=== PATIENT | female | born 2000 ===

== ENCOUNTER 2024-04-24 08:19 | Outpatient (AMB) | payer SELFPAY ==
[2024-04-24 08:57] VITALS: BP 102/70; PULSE 68; TEMP 36.8; O2SAT 99; BMI 28.7
--- NOTE | 2024-04-24 08:57 | AM.OFFWIN_ITS ---
Intake Vital Signs 04/24/24 08:57 Height 5 ft 6 in Weight 178 lb BMI 28.7 BP 102/70 Blood Pressure Location Lt brachial Position Sitting Pulse 68 Pulse Source Pulse Oximeter Temp 98.2 F Temp Source Oral Pulse Oximetry (%) 99 Oxygen Delivery Method Room Air Intake Visit Reasons: FRUIT [employer] F[employer]WORKER: Refill Lexipro (ok w/Kari) Intake Note: pt requesting med refill Patient Tobacco Use Status: Never used Tobacco Allergies No Known Allergies Allergy (Verified 04/24/24 08:57) Do you need a note to return to daycare/school/sports/work: No HPI FR[employer] F[employer]WORKER: Refill Lexipro (ok w/Kari) HPI Details This note is constructed using voice recognition software. While every effort has been made to ensure accuracy, fleet operations manager errors may have been included. The patient is a 23 year old female who presents to the clinic today with need for refill of SSRI. She notes that she is pending an appointment with a new PCP, but that appointment isn't until later on this month. She is out of her Lexapro and wants to avoid having any sort of withdrawal symptoms. She denies any thoughts of SI/HI, however does feel that her anxiety is slightly increased when she has missed the last couple of days of dosing, and does feel slightly more angered. PFSH Social History Patient Tobacco Use Status: Never used Tobacco Review of Systems Const All systems reviewed & are unremarkable except as noted in HPI and below Physical Exam Vital Signs: Last Vital Signs Temp 98.2 F 04/24/24 08:57 Pulse 68 04/24/24 08:57 BP 102/70 04/24/24 08:57 Pulse Ox 99 04/24/24 08:57 Oxygen Delivery Method Room Air 04/24/24 08:57 BMI result Body Mass Index 28.7 Const General: cooperative, healthy appearing, comfortable, no acute distress and alert Orientation/consciousness: patient oriented x3 Limitations: no limitations Neuro General: patient oriented x3 Psych Appearance: grossly normal Mental Status: mental status grossly normal Speech and movement: Normal speech and movement present Affect: normal affect Assessment & Plan Assessment & Plan (1) Anxiety: Code(s): F41.9 - Anxiety disorder, unspecified Plan: Refill of patient's SSRI provided today, patient able to verify medication through [facility]. we provided a refill in attempts to avoid SSRI withdrawal. Patient to follow up with her new primary care provider in a few weeks at her new patient appointment. Plan See above for full details and plan. Medications: New escitalopram oxalate 10 mg PO DAILY 30 days 30 tabs 0RF Coding Level of Care Code Est Pt Level 3 (40722) Diagnoses Anxiety F41.9
== END 2024-04-24 09:43 | disposition home or self-care (01) ==
PROVIDERS: PCP Internal Medicine; Visit Provider Registered Nurse
DX: F41.9 Anxiety disorder, unspecified (principal)
CPT/HCPCS: 99213